=== PATIENT | male | born 1990 | race Caucasian/White ===

== ENCOUNTER 2020-09-23 09:52 | Outpatient (CLI) | payer OTHER, SELFPAY | END 2020-09-23 09:53 | disposition home or self-care (01) | LOC: ANHBWCAUD 09:53 | PROVIDERS: PCP Internal Medicine Infectious Disease; Visit Provider Internal Medicine Infectious Disease | DX: H93.A9 Pulsatile tinnitus, unspecified ear (principal) | CPT/HCPCS: 92557; 92567 ==